=== PATIENT | female | born 1930 | race Caucasian/White ===

== ENCOUNTER 2017-07-18 19:44 | Observation (INO) | payer MEDICARE, MEDICAID ==
[2017-07-18 20:46] LABS: VENOUS BLOOD GAS BASE EXCESS 8.2 mmol/L (0.0-2.0); VENOUS BLOOD GAS PCO2 40 mmHg (40-60); VENOUS BLOOD PH 7.51 (7.32-7.43)
[2017-07-18 20:46] LABS: BASO % 0.6 % (0.0-2.0); EOS # 0.1 K/uL (0.0-0.7); EOS % 1.7 % (0.0-4.0); HEMATOCRIT 40.6 % (34.0-47.0); LYMPH # 2.7 K/uL (1.0-4.3); MEAN CELL VOLUME 84.2 fl (81.0-99.0); MEAN CORPUSCULAR HEMOGLOBIN 27.5 pg (27.0-31.0); MEAN CORPUSCULAR HGB CONC 32.7 g/dL (33.0-37.0); MEAN PLATELET VOLUME 8.2 fl (7.2-11.7); MONO # 0.6 K/uL (0.0-0.8); MONO % 9.8 % (0.0-10.0); NEUT # 2.2 K/uL (1.8-7.0); NEUT % 39.9 % (50.0-75.0); NRBC % 0.1 % (0.0-0.0); RED CELL DISTRIBUTION WIDTH 15.8 % (11.5-14.5); WHITE BLOOD COUNT 5.6 K/uL (4.8-10.8)
[2017-07-18 20:51] LABS: PARTIAL THROMBOPLASTIN TIME 28.1 Seconds (25.6-37.1)
--- NOTE | 2017-07-18 20:53 | ED PDOC ---
HPI: Seizure Time Seen by Provider: 07/18/17 19:59 Chief Complaint (Nursing): Seizure Chief Complaint (Provider): Seizure History Per: EMS History/Exam Limitations: no limitations Recent Seizure Activity Began: Just Before Arrival Number Of Seizures: One Length Of Seizures (Duration): Unknown Precipitating Factor(s): None Additional Complaint(s): Anai Alonzo, an 87 year old female, with a past medical history of Alzheimer's disease and dementia is brought into the ED by the EMS from her [facility] post seizure. History is limited due to patient's severely demented state. Patient has been seen here in the ED before. PMD: Dr. Chirinos Past Medical History Reviewed: Historical Data, Nursing Documentation, Vital Signs Vital Signs: Last Vital Signs Temp 97.9 F 07/19/17 12:09 Pulse 87 07/19/17 12:09 Resp 18 07/19/17 12:09 BP 157/93 H 07/19/17 12:09 Pulse Ox 96 07/19/17 12:09 - Medical History PMH: Alzheimer's Disease, Dementia, HTN, Hyperlipidemia, Seizures - Family History Family History: States: No Known Family Hx - Home Medications Home Medications: Ambulatory Orders Medication Instructions Recorded Acetaminophen [Acetaminophen] 325 mg PO Q4H PRN 07/18/17 Bisacodyl [Dulcolax] 10 mg DAILY PRN 07/18/17 Hydrochlorothiazide [Microzide] 25 mg PO DAILY 07/18/17 Memantine HCl/Donepezil HCl 1 tab PO DAILY 07/18/17 [Namzaric 28 mg-10 mg Capsule] QUEtiapine [Seroquel] 25 mg PO DAILY 07/18/17 Simvastatin [Simvastatin] 10 mg PO HS 07/18/17 Valsartan [Diovan] 160 mg PO DAILY 07/18/17 - Allergies Allergies/Adverse Reactions: Allergies Allergy/AdvReac Type Severity Reaction Status Date / Time No Known Allergies Allergy Verified 07/18/17 19:55 Review of Systems Review Of Systems: ROS cannot be obtained secondary to pt's inabilty to answer questions. (cannot be obtained due to patient being minimally verbal and severelt demented.) Physical Exam - Reviewed Nursing Documentation Reviewed: Yes Vital Signs Reviewed: Yes - Physical Exam Appears: Positive for: Non-toxic, No Acute Distress Head Exam: Positive for: ATRAUMATIC, NORMOCEPHALIC Skin: Positive for: Warm, Dry Eye Exam: Positive for: EOMI, PERRL ENT: Negative for: Pharyngeal Erythema, Tonsillar Exudate Neck: Positive for: Painless ROM, Supple Cardiovascular/Chest: Positive for: Regular Rate, Rhythm, Chest Non Tender. Negative for: Murmur Respiratory: Positive for: Normal Breath Sounds. Negative for: Wheezing Gastrointestinal/Abdominal: Positive for: Soft. Negative for: Tenderness, Mass , Distended Back: Positive for: Normal Inspection. Negative for: Decreased ROM Extremity: Positive for: Normal ROM, Other (poor muscle bulk diffusely). Negative for: Deformity Lymphatic: Negative for: Adenopathy Neurologic/Psych: Positive for: Alert, Other (Minimally verbal). Negative for: Oriented, Motor/Sensory Deficits - Laboratory Results Result Diagrams: 07/19/17 04:20 07/19/17 04:20 - ECG O2 Sat by Pulse Oximetry: 97 (RA) Pulse Ox Interpretation: Normal - Radiology X-Ray: Interpreted by Me X-Ray Interpretation: No Acute Disease Medical Decision Making Medical Decision Makin Initial Impression 87 y/o female presenting with seizure Differentials include but not limited too: Breakthrough seizure, Electrolyte abnormality, UTI, Dehydration, Head injury Initial Plan: * Type and Screen * VBG * CT Head w/o Contrast * EKG * CMP * Creatinine Phosphokinase * Lipase * Magnesium * Phosphorous * Troponin * Udip * CBC * Partial thromboplastin * Prothromin Time * Chest x-ray * Blood culture * Urine culture * Urinalysis * Reevaluation 2127 CT Head Without Intravenous Contrast CLINICAL HISTORY: 87 years old, female; Pain; Headache; Additional info: Seziure TECHNIQUE: Axial computed tomography images of the head/brain without intravenous contrast. All CT scans at this facility use one or more dose reduction techniques, viz.: automated exposure control; ma/kV adjustment per patient size (including targeted exams where dose is matched to indication; i.e. head); or iterative reconstruction technique. Coronal and sagittal reformatted images were created and reviewed. COMPARISON: No relevant prior studies available. FINDINGS: Brain: Atrophy. Bilateral white matter hypoattenuation most consistent with chronic small vessel changes. Vascular calcification. No hemorrhage. No edema. Ventricles: No hydrocephalus. Bones: Skull is intact. Sinuses: No acute sinusitis. Mastoid air cells: No mastoid effusion. IMPRESSION: No CT evidence of acute intracranial abnormality. Chronic changes as above. Xray interpreted by provider negative for any acute disease 2144 Patient trying to get out of bed unable to redirect likely due to dementia placed on 1 to 1 and given medication for safety. Mildly elevated BUN/CR. IVF ordered 1030p DW Dr Chirinos PMD Pt to be hospitalized to his service, pending UA Scribe Attestation Documented by Sylwia Gurrola acting as a scribe for Devora Robles MD. Provider Attestation All medical record entries made by the Scribe were at my direction and personally dictated by me. I have reviewed the chart and agree that the record accurately reflects my personal performance of the history, physical exam, medical decision making, and the department course for this patient. I have also personally directed, reviewed, and agree with the discharge instructions and disposition. Disposition - Clinical Impression Clinical Impression: Witnessed seizure, Dehydration - Disposition Disposition Time: 23:00 Condition: STABLE - Pt Status Changed To: Hospital Disposition Of: Observation - POA Present On Arrival: Falls Or Trauma (attempts to get out of bed unassisted)
[2017-07-18 20:57] LABS: ALB/GLOB RATIO 1.3 (1.0-2.1); BILIRUBIN,TOTAL 0.8 mg/dl (0.2-1.3); CALCIUM 9.7 mg/dL (8.4-10.2); MAGNESIUM 1.9 MG/DL (1.6-2.3); PHOSPHOROUS 2.7 mg/dl (2.5-4.5); POTASSIUM 3.9 MMOL/L (3.6-5.0); TOTAL PROTEIN 7.7 G/DL (6.3-8.2)
[2017-07-18 21:08] LABS: TROPONIN I 0.025 ng/mL (0.00-0.120)
--- NOTE | 2017-07-18 21:28 | CT ---
EXAM: CT Head Without Intravenous Contrast CLINICAL HISTORY: 87 years old, female; Pain; Headache; Additional info: Seziure TECHNIQUE: Axial computed tomography images of the head/brain without intravenous contrast. All CT scans at this facility use one or more dose reduction techniques, viz.: automated exposure control; ma/kV adjustment per patient size (including targeted exams where dose is matched to indication; i.e. head); or iterative reconstruction technique. Coronal and sagittal reformatted images were created and reviewed. COMPARISON: No relevant prior studies available. FINDINGS: Brain: Atrophy. Bilateral white matter hypoattenuation most consistent with chronic small vessel changes. Vascular calcification. No hemorrhage. No edema. Ventricles: No hydrocephalus. Bones: Skull is intact. Sinuses: No acute sinusitis. Mastoid air cells: No mastoid effusion. IMPRESSION: No CT evidence of acute intracranial abnormality. Chronic changes as above.
[2017-07-18] MEDS ORDERED: Sodium Chloride 0.9% 500 ML IV STA (22:54)
[2017-07-19 01:05] LABS: RBC URINE 2 /hpf (0-3); URINE BILIRUBIN NEGATIVE (NEGATIVE); URINE BLOOD NEGATIVE (NEGATIVE); URINE COLOR YELLOW (YELLOW); URINE GLUCOSE (UA) NEG (Normal); URINE KETONE NEGATIVE (NEGATIVE); URINE LEUKOCYTE ESTERASE NEG Leu/uL (Negative); URINE PROTEIN NEGATIVE (NEGATIVE); WBC URINE < 1 /hpf (0-5)
[2017-07-19 05:30] LABS: MEAN CELL VOLUME 81.7 fl (81.0-99.0); MEAN CORPUSCULAR HEMOGLOBIN 26.3 pg (27.0-31.0); MEAN CORPUSCULAR HGB CONC 32.2 g/dL (33.0-37.0); RED CELL DISTRIBUTION WIDTH 15.7 % (11.5-14.5); WHITE BLOOD COUNT 5.8 K/uL (4.8-10.8)
[2017-07-19 05:39] LABS: ALB/GLOB RATIO 1.3 (1.0-2.1); BILIRUBIN,TOTAL 0.7 mg/dl (0.2-1.3); CALCIUM 9.1 mg/dL (8.4-10.2); POTASSIUM 3.7 MMOL/L (3.6-5.0); TOTAL PROTEIN 6.8 G/DL (6.3-8.2)
[2017-07-19 05:49] LABS: T4 8.85 ug/dl (5.5-11.0)
[2017-07-19 06:03] LABS: THYROID STIMULATING HORMONE 2.74 mIU/ML (0.46-4.68)
--- NOTE | 2017-07-19 08:06 | CARD ---
APPROVED REPORT EKG Measurement Heart [id number] <Conclusion> Sinus rhythm Nonspecific ST and T wave abnormality Abnormal ECG
[2017-07-19] MEDS ORDERED: DONEPEZIL HCL PO SCH (09:00)
[2017-07-19] MEDS ORDERED: MEMANTINE HCL PO SCH (09:00)
--- NOTE | 2017-07-19 10:16 | RAD ---
HISTORY: seizure COMPARISON: No prior. FINDINGS: LUNGS: No active pulmonary disease. PLEURA: No significant pleural effusion identified, no pneumothorax apparent. CARDIOVASCULAR: No radiographic findings to suggest acute or significant cardiovascular disease. OSSEOUS STRUCTURES: No significant abnormalities. VISUALIZED UPPER ABDOMEN: Normal. OTHER FINDINGS: None. IMPRESSION: No active disease. No significant interval change compared to the prior examination(s). Concordant results with the preliminary interpretation rendered by the emergency department physician procedure.
[2017-07-19] MEDS: Sodium Chloride 0.9% 1,000 ML IV SCH (16:03)
--- NOTE | 2017-07-19 17:23 | CP.PCM.HP ---
History of Present Illness - History of Present Illness History of Present Illness: CC: Seizure 87 y/o F, Resident at [facility] witnessed seizure activity about 6:00 pm DOA, as per correction, Pt had one episode of seizure associated to AMS, Pt's base line is confused. Worsening symptoms: Increased confusion after episode. Pt is confined to bed/ chair > 50%. Aggravated factor: Unable to cooperate with history 2nd to altered mental condition, minimal verbal. No: Fever, chills, n/v/d, abdominal pain, CP. SO CT Chest: No intracranial abnormality. Present on Admission - Present on Admission Any Indicators Present on Admission: No Review of Systems - Review of Systems Systems not reviewed;Unavailable: Acuity of Condition, Dementia, Altered Mental Status Past Patient History - Past Medical History & Family History Past Medical History?: Yes Pertinent Family History: Unknown - Past Social History Smoking Status: Unknown If Ever Smoked Alcohol: None Drugs: Denies Home Situation {Lives}: Assisted - CARDIAC Hx Cardiac Disorders: Yes Hx Hypercholesterolemia: Yes Hx Hypertension: Yes - PULMONARY Hx Respiratory Disorders: No - NEUROLOGICAL Hx Neurological Disorder: Yes Hx Alzheimer's Disease: Yes Hx Dementia: Yes Hx Seizures: Yes - HEENT Hx HEENT Problems: No - RENAL Hx Chronic Kidney Disease: No - ENDOCRINE/METABOLIC Hx Endocrine Disorders: No - HEMATOLOGICAL/ONCOLOGICAL Hx Blood Disorders: No - INTEGUMENTARY Hx Dermatological Problems: No - MUSCULOSKELETAL/RHEUMATOLOGICAL Hx Musculoskeletal Disorders: No Hx Falls: No - GASTROINTESTINAL Hx Gastrointestinal Disorders: No - GENITOURINARY/GYNECOLOGICAL Hx Genitourinary Disorders: No - PSYCHIATRIC Hx Psychophysiologic Disorder: No Hx Substance Use: No - SURGICAL HISTORY Hx Surgeries: No - ANESTHESIA Hx Anesthesia: No Meds Allergies/Adverse Reactions: Allergies Allergy/AdvReac Type Severity Reaction Status Date / Time No Known Allergies Allergy Verified 07/18/17 19:55 Physical Exam - Constitutional Appears: No Acute Distress, Chronically Ill - Head Exam Head Exam: NORMAL INSPECTION - Eye Exam Eye Exam: PERRL - ENT Exam ENT Exam: Normal Exam - Neck Exam Neck exam: Positive for: Normal Inspection - Respiratory Exam Respiratory Exam: NORMAL BREATHING PATTERN - Cardiovascular Exam Cardiovascular Exam: REGULAR RHYTHM - GI/Abdominal Exam GI & Abdominal Exam: Normal Bowel Sounds, Soft - Extremities Exam Extremities exam: Positive for: normal inspection - Back Exam Back exam: NORMAL INSPECTION - Neurological Exam Additional comments: Confused, disoriented, not following commands , limited movement all extremities , tendency to keep U/E and L/E contracted. - Skin Skin Exam: Warm Results - Vital Signs Recent Vital Signs: Last Vital Signs Temp 98.3 F 07/19/17 16:09 Pulse 81 07/19/17 16:09 Resp 20 07/19/17 16:09 BP 137/73 07/19/17 16:09 Pulse Ox 99 07/19/17 16:09 reviewed Lyly - Labs Result Diagrams: 07/20/17 05:20 07/20/17 05:20 Labs: Laboratory Results - last 24 hr 07/18/17 07/18/17 07/18/17 20:30 20:30 20:30 WBC 5.6 RBC 4.82 Hgb 13.3 Hct 40.6 MCV 84.2 MCH 27.5 MCHC 32.7 L RDW 15.8 H Plt Count 183 MPV 8.2 Neut % (Auto) 39.9 L Lymph % (Auto) 48.0 H [place] % (Auto) 9.8 Eos % (Auto) 1.7 Baso % (Auto) 0.6 Neut # 2.2 Lymph # 2.7 [place] # 0.6 Eos # 0.1 Baso # 0.0 PT 11.7 INR 1.0 APTT 28.1 pO2 VBG pH VBG pCO2 VBG HCO3 VBG Total CO2 VBG O2 Sat (Calc) VBG Base Excess VBG Potassium Glucose Lactate FiO2 Blood Gas Comments Crit Value Called To Crit Value Called By Crit Value Read Back Blood Gas Notified Time Sodium 143 Potassium 3.9 Chloride 103 Carbon Dioxide 28 Anion Gap 16 BUN 33 H Creatinine 1.8 H Est GFR ( Amer) 32 Est GFR (Non-Af Amer) 26 Random Glucose 105 Calcium 9.7 Phosphorus 2.7 Magnesium 1.9 Total Bilirubin 0.8 AST 28 ALT 46 Alkaline Phosphatase 97 Total Creatine Kinase 41 Troponin I 0.0250 Total Protein 7.7 Albumin 4.3 Globulin 3.3 Albumin/Globulin Ratio 1.3 Triglycerides Cholesterol LDL Cholesterol Direct HDL Cholesterol Lipase 93 Thyroxine (T4) TSH 3rd Generation Venous Blood Potassium Urine Color Urine Clarity Urine pH Ur Specific [place] Urine Protein Urine Glucose (UA) Urine Ketones Urine Blood Urine Nitrate Urine Bilirubin Urine Urobilinogen Ur Leukocyte Esterase Urine RBC (Auto) Urine Microscopic WBC BBK History Checked 07/18/17 07/18/17 07/19/17 20:30 20:39 00:59 WBC RBC Hgb Hct MCV MCH MCHC RDW Plt Count MPV Neut % (Auto) Lymph % (Auto) [place] % (Auto) Eos % (Auto) Baso % (Auto) Neut # Lymph # [place] # Eos # Baso # PT INR APTT pO2 16 L VBG pH 7.51 H VBG pCO2 40 VBG HCO3 29.4 VBG Total CO2 33.1 H VBG O2 Sat (Calc) 31.0 L VBG Base Excess 8.2 H VBG Potassium 10.9 H* Glucose 110 H Lactate 2.9 H FiO2 21.0 Blood Gas Comments Lactate 2.9 Crit Value Called To munira Cabrera Crit Value Called By 203 Crit Value Read Back Y Blood Gas Notified Time 2044 Sodium 135.0 Potassium Chloride 105.0 Carbon Dioxide Anion Gap BUN Creatinine Est GFR ( Amer) Est GFR (Non-Af Amer) Random Glucose Calcium Phosphorus Magnesium Total Bilirubin AST ALT Alkaline Phosphatase Total Creatine Kinase Troponin I Total Protein Albumin Globulin Albumin/Globulin Ratio Triglycerides Cholesterol LDL Cholesterol Direct HDL Cholesterol Lipase Thyroxine (T4) TSH 3rd Generation Venous Blood Potassium 10.9 H* Urine Color Yellow Urine Clarity Clear Urine pH 6.0 Ur Specific [place] 1.020 Urine Protein Negative Urine Glucose (UA) Neg Urine Ketones Negative Urine Blood Negative Urine Nitrate Negative Urine Bilirubin Negative Urine Urobilinogen 2.0 H Ur Leukocyte Esterase Neg Urine RBC (Auto) 2 Urine Microscopic WBC < 1 BBK History Checked No verified bt 07/19/17 07/19/17 04:20 04:20 WBC 5.8 RBC 4.77 Hgb 12.6 Hct 39.0 MCV 81.7 D MCH 26.3 L MCHC 32.2 L RDW 15.7 H Plt Count 166 MPV Neut % (Auto) Lymph % (Auto) [place] % (Auto) Eos % (Auto) Baso % (Auto) Neut # Lymph # [place] # Eos # Baso # PT INR APTT pO2 VBG pH VBG pCO2 VBG HCO3 VBG Total CO2 VBG O2 Sat (Calc) VBG Base Excess VBG Potassium Glucose Lactate FiO2 Blood Gas Comments Crit Value Called To Crit Value Called By Crit Value Read Back Blood Gas Notified Time Sodium 146 Potassium 3.7 Chloride 105 Carbon Dioxide 31 H Anion Gap 14 BUN 28 H Creatinine 1.7 H Est GFR ( Amer) 34 Est GFR (Non-Af Amer) 28 Random Glucose 109 H Calcium 9.1 Phosphorus Magnesium Total Bilirubin 0.7 AST 30 ALT 40 Alkaline Phosphatase 76 Total Creatine Kinase Troponin I Total Protein 6.8 Albumin 3.8 Globulin 3.0 Albumin/Globulin Ratio 1.3 Triglycerides 162 H Cholesterol 163 LDL Cholesterol Direct 97 HDL Cholesterol 32 Lipase Thyroxine (T4) 8.85 TSH 3rd Generation 2.74 Venous Blood Potassium Urine Color Urine Clarity Urine pH Ur Specific [place] Urine Protein Urine Glucose (UA) Urine Ketones Urine Blood Urine Nitrate Urine Bilirubin Urine Urobilinogen Ur Leukocyte Esterase Urine RBC (Auto) Urine Microscopic WBC BBK History Checked reviewed J.P. - EKG Data EKG comments: reviewed J.P. - Imaging and Cardiology Chest x-ray Status: Report reviewed by me (Lyly) Assessment & Plan (1) Witnessed seizure Status: Acute Priority: High (2) Altered mental status Status: Acute Priority: High (3) Dehydration Status: Acute Priority: High (4) HTN (hypertension) Status: Chronic Priority: Medium (5) Hyperlipidemia Status: Chronic Priority: Medium - Assessment and Plan (Free Text) Plan: F/U Blood C-S, U C-S, IV Fluid, Diovan, Hydrodiuril, Pravachol, Seroquel, Brain MRI, EEG, PT, OT eval. - Date & Time Date: 07/19/17 Time: 10:30
[2017-07-19] MEDS ORDERED: Pravastatin Sodium 20 MG TAB PO SCH (22:00)
--- NOTE | 2017-07-19 22:55 | CP.PCM.CON ---
History of Present Illness - History of Present Illness History of Present Illness: 87 y/o F, Resident at [facility], brought by EMS to [facility] for evaluation of a witnessed seizure activity about 6:00 pm DOA, as per detention, Pt had one episode of seizure associated to AMS, Pt's base line is confused. Worsening symptoms: Increased confusion after episode. Pt is confined to bed/ chair > 50%. Aggravated factor: Unable to cooperate with history 2nd to altered mental condition, minimal verbal. Patient has been seen here in the ED before. No: Fever, chills, n/v/d, abdominal pain, CP. SO CT Brain: No intracranial abnormality. Past medical history of Alzheimer's disease and dementia. History is limited due to patient's severely demented state Present on Admission - Present on Admission Any Indicators Present on Admission: No Review of Systems - Review of Systems Systems not reviewed;Unavailable: Acuity of Condition, Dementia, Altered Mental Status Past Patient History - Past Medical History & Family History Past Medical History?: Yes Pertinent Family History: Unknown - Past Social History Smoking Status: Unknown If Ever Smoked Alcohol: None Drugs: Denies Home Situation {Lives}: Half-Way - CARDIAC Hx Cardiac Disorders: Yes x Hx Hypercholesterolemia: Yes x Hx Hypertension: Yes x - PULMONARY Hx Respiratory Disorders: No - NEUROLOGICAL Hx Neurological Disorder: Yes x Hx Alzheimer's Disease: Yes x Hx Dementia: Yes x Hx Seizures: Yes x ? Patient is on no medicine for seizures in the Half-Way. More clarification is needed if she has really a history of seizures and when was the First and the Last Seizures. What medicine of Seizures she is on. Is there any family History of seizures , any Old history of head trauma or Meningitis or encephalitis or electrolyte imbalance ? - HEENT Hx HEENT Problems: No - RENAL Hx Chronic Kidney Disease: No - ENDOCRINE/METABOLIC Hx Endocrine Disorders: No - HEMATOLOGICAL/ONCOLOGICAL Hx Blood Disorders: No - INTEGUMENTARY Hx Dermatological Problems: No - MUSCULOSKELETAL/RHEUMATOLOGICAL Hx Musculoskeletal Disorders: No Hx Falls: No - GASTROINTESTINAL Hx Gastrointestinal Disorders: No - GENITOURINARY/GYNECOLOGICAL Hx Genitourinary Disorders: No - PSYCHIATRIC Hx Psychophysiologic Disorder: No Hx Substance Use: No - SURGICAL HISTORY Hx Surgeries: No - ANESTHESIA Hx Anesthesia: No Meds Allergies/Adverse Reactions: Allergies Allergy/AdvReac Type Severity Reaction Status Date / Time No Known Allergies Allergy Verified 07/18/17 19:55 Physical Exam - Constitutional Appears: No Acute Distress, Chronically Ill - Head Exam Head Exam: NORMAL INSPECTION - Eye Exam Eye Exam: PERRL - ENT Exam ENT Exam: Normal Exam - Neck Exam Neck exam: Positive for: Normal Inspection - Respiratory Exam Respiratory Exam: NORMAL BREATHING PATTERN - Cardiovascular Exam Cardiovascular Exam: REGULAR RHYTHM - GI/Abdominal Exam GI & Abdominal Exam: Normal Bowel Sounds, Soft - Extremities Exam Extremities exam: Positive for: normal inspection - Back Exam Back exam: NORMAL INSPECTION - Neurological Exam Additional comments: Confused, disoriented, obeys commands. - Skin Skin Exam: Warm IMPRESSION of CT Brain: No CT evidence of acute intracranial abnormality. Chronic changes as above. IMPRESSION of CXR: No active disease. No significant interval change compared to the prior examination(s). Results - Vital Signs Recent Vital Signs: Last Vital Signs Temp 98.3 F 07/19/17 16:09 Pulse 81 07/19/17 16:09 Resp 20 07/19/17 16:09 BP 137/73 07/19/17 16:09 Pulse Ox 99 07/19/17 16:09 Assessment & Plan (1) Witnessed seizure Status: Acute Priority: High (2) Altered mental status Status: Acute Priority: High (3) Dehydration Status: Acute Priority: High (4) HTN (hypertension) Status: Chronic Priority: Medium (5) Hyperlipidemia Status: Chronic Priority: Medium - Assessment and Plan (Free Text) Plan: F/U Blood C-S, U C-S, IV Fluid, Diovan, Hydrodiuril, Pravachol, Seroquel, Brain MRI, EEG, PT, OT eval. Past Patient History - Past Medical History & Family History Past Medical History?: Yes - Past Social History Smoking Status: Unknown If Ever Smoked Alcohol: None Drugs: Denies Home Situation {Lives}: Half-Way - CARDIAC Hx Cardiac Disorders: Yes Hx Hypercholesterolemia: Yes Hx Hypertension: Yes - PULMONARY Hx Respiratory Disorders: No - NEUROLOGICAL Hx Neurological Disorder: Yes Hx Alzheimer's Disease: Yes Hx Dementia: Yes Hx Seizures: Yes - HEENT Hx HEENT Problems: No - RENAL Hx Chronic Kidney Disease: No - ENDOCRINE/METABOLIC Hx Endocrine Disorders: No - HEMATOLOGICAL/ONCOLOGICAL Hx Blood Disorders: No - INTEGUMENTARY Hx Dermatological Problems: No - MUSCULOSKELETAL/RHEUMATOLOGICAL Hx Musculoskeletal Disorders: No Hx Falls: No - GASTROINTESTINAL Hx Gastrointestinal Disorders: No - GENITOURINARY/GYNECOLOGICAL Hx Genitourinary Disorders: No - PSYCHIATRIC Hx Psychophysiologic Disorder: No Hx Substance Use: No - SURGICAL HISTORY Hx Surgeries: No - ANESTHESIA Hx Anesthesia: No Meds Home Medications: Home Medication List Medication Instructions Recorded Confirmed Type Diazepam 1 each RC BID #14 kit 07/20/17 Rx Enoxaparin [Lovenox] 30 mg [place] DAILY syr 07/20/17 Rx Allergies/Adverse Reactions: Allergies Allergy/AdvReac Type Severity Reaction Status Date / Time No Known Allergies Allergy Verified 07/18/17 19:55 - Medications Medications: Current Medications Acetaminophen (Tylenol 325mg Tab) 325 mg PO Q4H PRN PRN Reason: Temperature Bisacodyl (Dulcolax) 10 mg [place] DAILY PRN PRN Reason: Constipation Enoxaparin Sodium (Lovenox) 30 mg [place] DAILY [facility] PRN Reason: Protocol Hydrochlorothiazide (Hydrodiuril) 25 mg PO DAILY [facility] Last Admin: 07/19/17 09:46 Dose: Not Given Sodium Chloride (Sodium Chloride 0.9%) 1,000 mls @ 60 mls/hr IV .[id number] [facility] Stop: 07/20/17 15:25 Last Admin: 07/19/17 16:03 Dose: 60 mls/hr Lorazepam (Ativan) 2 mg IVP Q6 PRN PRN Reason: Seizure activity Pravastatin Sodium (Pravachol) 20 mg PO [facility] Last Admin: 07/19/17 22:00 Dose: 20 mg Quetiapine Fumarate (Seroquel) 25 mg PO DAILY [facility] Last Admin: 07/19/17 09:46 Dose: Not Given Valsartan (Diovan) 160 mg PO DAILY [facility] Last Admin: 07/19/17 09:46 Dose: Not Given Physical Exam - Neurological Exam Additional comments: Mental Status: Awake alert, disoriented X 3, speech is non fluent non coherent, smiley. Speaks strictly [place]. Cranial nerves II to XII: Pupils are equal reactive, 2 to 3 mm each Extraocular muscles are intact No facial asymmetry Central Tongue, normal swallowing. Motor: Normal Tone, power is 5-/5, symmetrically equal on both sides. DTR 0/4 Toes are down going with Plantar stimulation Sensory: Intact Pain. Cerebellar: Non cooperative. Results - Vital Signs Recent Vital Signs: Last Vital Signs Temp 98.3 F 07/19/17 19:48 Pulse 84 07/19/17 19:48 Resp 20 07/19/17 19:48 BP 154/72 H 07/19/17 19:48 Pulse Ox 98 07/19/17 19:48 - Labs Result Diagrams: 07/20/17 05:20 07/20/17 05:20 Labs: Laboratory Results - last 24 hr 07/19/17 07/19/17 07/19/17 00:59 04:20 04:20 WBC 5.8 RBC 4.77 Hgb 12.6 Hct 39.0 MCV 81.7 D MCH 26.3 L MCHC 32.2 L RDW 15.7 H Plt Count 166 Sodium 146 Potassium 3.7 Chloride 105 Carbon Dioxide 31 H Anion Gap 14 BUN 28 H Creatinine 1.7 H Est GFR ( Amer) 34 Est GFR (Non-Af Amer) 28 Random Glucose 109 H Calcium 9.1 Total Bilirubin 0.7 AST 30 ALT 40 Alkaline Phosphatase 76 Total Protein 6.8 Albumin 3.8 Globulin 3.0 Albumin/Globulin Ratio 1.3 Triglycerides 162 H Cholesterol 163 LDL Cholesterol Direct 97 HDL Cholesterol 32 Thyroxine (T4) 8.85 TSH 3rd Generation 2.74 Urine Color Yellow Urine Clarity Clear Urine pH 6.0 Ur Specific [place] 1.020 Urine Protein Negative Urine Glucose (UA) Neg Urine Ketones Negative Urine Blood Negative Urine Nitrate Negative Urine Bilirubin Negative Urine Urobilinogen 2.0 H Ur Leukocyte Esterase Neg Urine RBC (Auto) 2 Urine Microscopic WBC < 1 Assessment & Plan (1) Altered mental status Assessment and Plan: This might due her chronic condition of Alzheimer, with an exacerbation due to her witnessed Seizure. Status: Acute Priority: High (2) Dehydration Assessment and Plan: It might be a factor causing seizure due to electrolyte imbalance. Status: Acute Priority: High (3) Witnessed seizure Assessment and Plan: Patient is on no medicine for seizures in the Half-Way. More clarification is needed if she has really a history of seizures? When were the First Seizure and the Last Seizures. What medicine of Seizures she is on. Is there any family History of seizures , any Old history of head trauma or Meningitis or encephalitis or electrolyte imbalance ? Status: Acute Priority: High (4) HTN (hypertension) Assessment and Plan: High Blood Pressure might be a faction causing seizures due to Hypertensive Encephalopathy. Status: Chronic Priority: Medium (5) Hyperlipidemia Assessment and Plan: Must be treated. Status: Chronic Priority: Medium (6) CVA (cerebral vascular accident) Assessment and Plan: R/O old CVA that might be a focus for her seizures, R/O new CVA Negative CT Brain. Status: Acute
[2017-07-20 06:16] LABS: HEMATOCRIT 38.9 % (34.0-47.0); MEAN CORPUSCULAR HEMOGLOBIN 26.6 pg (27.0-31.0); MEAN CORPUSCULAR HGB CONC 32.4 g/dL (33.0-37.0); RED CELL DISTRIBUTION WIDTH 15.5 % (11.5-14.5); WHITE BLOOD COUNT 6.1 K/uL (4.8-10.8)
[2017-07-20 06:23] LABS: CALCIUM 8.5 mg/dL (8.4-10.2)
[2017-07-20 06:24] LABS: BLOOD UREA NITROGEN 17 mg/dl (7-17); CARBON DIOXIDE 28 mmol/L (22-30); CHLORIDE 106 mmol/L (98-107); GFR AFRICAN-AMERICAN 43; GLUCOSE,RANDOM 103 mg/dL (65-105); POTASSIUM 3.5 MMOL/L (3.6-5.0); SODIUM 142 mmol/l (132-148)
[2017-07-20 06:28] LABS: URIC ACID 8.1 mg/Dl (2.2-7.5)
[2017-07-20 06:52] LABS: THYROID STIMULATING HORMONE 1.21 mIU/ML (0.46-4.68)
[2017-07-20] MEDS: Sodium Chloride 0.9% 1,000 ML IV SCH (08:20)
[2017-07-20] MEDS ORDERED: Enoxaparin 30 mg Syringe SC SCH (09:00)
--- NOTE | 2017-07-20 11:55 | US ---
PROCEDURE: Duplex ultrasound of the carotid and vertebral arteries. HISTORY: r/o cva COMPARISON: None available. TECHNIQUE: Grayscale and duplex Doppler evaluation of the cervical carotid and vertebral arteries were performed. The common carotid, carotid bifurcations and cervical ICA and proximal ECA were evaluated. The vertebral arteries were evaluated for gross patency and direction. FINDINGS: RIGHT CAROTID ARTERIES: Common Carotid Artery: Calcific plaque with intimal thickening. Maximal flow velocity of 107.7 cm/s. Carotid Bifurcation: Calcific plaque. Internal Carotid Artery:Calcific plaque with intimal thickening. Maximal flow velocity of 99.0 cm/s. External Carotid Artery (proximal branches): Normal. Maximal flow velocity of 154.7 cm/s. ICA/CCA Ratio: 0.9 LEFT CAROTID ARTERIES: Not evaluated, patient refused. VERTEBRAL ARTERIES: Right Vertebral Artery: Patent. Antegrade flow. Left Vertebral Artery: Not evaluated, patient refused. OTHER FINDINGS: None. IMPRESSION: According to NASCET criteria, less than 50 percent stenosis in the right internal carotid artery. Left carotid/ vertebral artery were not evaluated due to patient request.
[2017-07-20 14:41] LABS: FOLATE > 20.0 ng/mL
--- NOTE | 2017-07-20 15:40 | CP.PCM.PN ---
Subjective - Date & Time of Evaluation Date of Evaluation: 07/20/17 Time of Evaluation: 12:50 - Subjective Subjective: F/U Seizure / AMS Pt awake, no A/D, numbness sound at times, able to pronounce a word, confused. Objective - Vital Signs/Intake and Output Vital Signs (last 24 hours): Temp Pulse Resp BP Pulse Ox 97.7 F 82 18 122/68 95 07/20/17 12:11 07/20/17 12:11 07/20/17 12:11 07/20/17 12:11 07/20/17 12:11 - Medications Medications: Current Medications Acetaminophen (Tylenol 325mg Tab) 325 mg PO Q4H PRN PRN Reason: Temperature Bisacodyl (Dulcolax) 10 mg [place] DAILY PRN PRN Reason: Constipation Enoxaparin Sodium (Lovenox) 30 mg SC DAILY [facility] PRN Reason: Protocol Last Admin: 07/20/17 08:39 Dose: 30 mg Hydrochlorothiazide (Hydrodiuril) 25 mg PO DAILY [facility] Last Admin: 07/20/17 08:38 Dose: 25 mg Lorazepam (Ativan) 2 mg IVP Q6 PRN PRN Reason: Seizure activity Pravastatin Sodium (Pravachol) 20 mg PO HS [facility] Last Admin: 07/19/17 22:00 Dose: 20 mg Quetiapine Fumarate (Seroquel) 25 mg PO DAILY [facility] Last Admin: 07/20/17 08:39 Dose: 25 mg Valsartan (Diovan) 160 mg PO DAILY [facility] Last Admin: 07/20/17 08:38 Dose: 160 mg - Labs Labs: 07/20/17 05:20 07/20/17 05:20 PT 11.7 Seconds (9.8-13.1) 07/18/17 20:30 INR 1.0 (0.9-1.2) 07/18/17 20:30 APTT 28.1 Seconds (25.6-37.1) 07/18/17 20:30 - Constitutional Appears: No Acute Distress, Chronically Ill - Head Exam Head Exam: NORMAL INSPECTION - Eye Exam Eye Exam: PERRL - ENT Exam ENT Exam: Normal Exam - Neck Exam Neck Exam: Normal Inspection - Respiratory Exam Respiratory Exam: NORMAL BREATHING PATTERN - Cardiovascular Exam Cardiovascular Exam: REGULAR RHYTHM - GI/Abdominal Exam GI & Abdominal Exam: Soft, Normal Bowel Sounds - Extremities Exam Extremities Exam: Normal Inspection - Back Exam Back Exam: NORMAL INSPECTION - Neurological Exam Additional comments: Pt confused, disoriented, able to extend upper and lower extremities spontaneously , no following commands, no focal motor deficit. - Skin Skin Exam: Warm Assessment and Plan (1) Witnessed seizure Status: Acute (2) Altered mental status Status: Acute (3) Dehydration Status: Acute (4) HTN (hypertension) Status: Chronic (5) Hyperlipidemia Status: Chronic - Assessment and Plan (Free Text) Plan: Neurology cleared, Pt improved and stable to go back to [facility] today.
[2017-07-20 16:05] VITALS: BP 149/72; PULSE 93; RESP 20; TEMP 98.2; O2SAT 96
--- NOTE | 2017-07-21 22:15 | CP.PCM.PN ---
Subjective - Date & Time of Evaluation Date of Evaluation: 07/20/17 Time of Evaluation: 10:00 - Subjective Subjective: Patient is discharged safely to his detention without any new seizures. Patient will be followed as an Outpatient. Objective - Vital Signs/Intake and Output Vital Signs (last 24 hours): Temp Pulse Resp BP Pulse Ox 98.2 F 93 H 20 149/72 96 07/20/17 16:05 07/20/17 16:05 07/20/17 16:05 07/20/17 16:05 07/20/17 16:05 - Labs Labs: 07/20/17 05:20 07/20/17 05:20 PT 11.7 Seconds (9.8-13.1) 07/18/17 20:30 INR 1.0 (0.9-1.2) 07/18/17 20:30 APTT 28.1 Seconds (25.6-37.1) 07/18/17 20:30 Assessment and Plan (1) Altered mental status Status: Acute (2) Dehydration Status: Acute (3) Witnessed seizure Status: Acute (4) HTN (hypertension) Status: Chronic (5) Hyperlipidemia Status: Chronic (6) CVA (cerebral vascular accident) Status: Acute
== END 2017-07-20 16:44 ==
LOC: H.ER 19:44 → H.ERHOLD 07-19 00:01 → H.TEL 07-19 02:28
PROVIDERS: ADMIT Internal Medicine Pulmonary Disease; ATTEND Internal Medicine Pulmonary Disease
DX: R56.9 Unspecified convulsions (principal); E86.0 Dehydration; E78.00 Pure hypercholesterolemia, unspecified; E78.5 Hyperlipidemia, unspecified; F02.80 Dementia in other diseases classified elsewhere, unspecified severity, without behavioral disturbance, psychotic disturbance, mood disturbance, and anxiety; G30.9 Alzheimer's disease, unspecified; I10 Essential (primary) hypertension; Z74.01 Bed confinement status; Z79.899 Other long term (current) drug therapy; Z86.73 Personal history of transient ischemic attack (TIA), and cerebral infarction without residual deficits; R51 Headache; R41.82 Altered mental status, unspecified
CPT/HCPCS: 36415; 70450; 71010; 80048; 80053; 80061; 81003; 82306; 82550; 82746; 82803; 83036; 83520; 83690; 83735; 84100; 84252; 84436; 84443; 84484; 84550; 85025; 85027; 85610; 85651; 85730; 86039; 86140; 86850; 86900; 87040; 87086; 93005; 93880; 96372; 96374; 99285; G0378; J1630; J1650; J2060; J7040